=== PATIENT | female | born 1950 | race Hispanic/Latino ===

== ENCOUNTER → 2022-08-17 | Outpatient (CLI) | payer OTHER ==
[~2022-08-17] MED LIST: HYOS-28 PO; LANS1COM10 PO; OMEP20CA12 PO; ONDA4TAB4 PO; PROM25TA7 PO
== END | disposition home or self-care (01) ==
LOC: RAH 10:05
DX: K82.4 Cholesterolosis of gallbladder (principal); R10.13 Epigastric pain
CPT/HCPCS: 76700

== ENCOUNTER → 2023-05-04 | Outpatient (CLI) | payer OTHER | END | disposition home or self-care (01) | LOC: RAH 15:37 | PROVIDERS: ATTEND Family Medicine | DX: M19.072 Primary osteoarthritis, left ankle and foot (principal); M25.572 Pain in left ankle and joints of left foot | CPT/HCPCS: 73630 ==

== ENCOUNTER → 2023-05-05 | Outpatient (CLI) | payer OTHER | END | disposition home or self-care (01) | LOC: RAH 09:26 | PROVIDERS: ATTEND Family Medicine | DX: R22.42 Localized swelling, mass and lump, left lower limb (principal); M79.89 Other specified soft tissue disorders; M79.605 Pain in left leg | CPT/HCPCS: 93971 ==

== ENCOUNTER → 2023-06-12 | Outpatient (CLI) | payer OTHER | END | disposition home or self-care (01) | LOC: RAH 13:40 | PROVIDERS: ATTEND Family Medicine | DX: M19.071 Primary osteoarthritis, right ankle and foot (principal); M79.671 Pain in right foot | CPT/HCPCS: 73630 ==

== ENCOUNTER → 2024-02-26 | Outpatient (CLI) | payer OTHER | END | disposition home or self-care (01) | LOC: RAH 07:56 | PROVIDERS: ATTEND Family Medicine | DX: K82.4 Cholesterolosis of gallbladder (principal); R10.12 Left upper quadrant pain; N94.9 Unspecified condition associated with female genital organs and menstrual cycle | CPT/HCPCS: 76700; 76856 ==

== ENCOUNTER → 2024-12-06 | Outpatient (CLI) | payer OTHER ==
--- NOTE | 2024-12-06 16:58 | HMCIMG ---
US ABDOMINAL COMPLETE HISTORY: Upper abdominal pain COMPARISON: None TECHNIQUE: Multiple transverse and longitudinal ultrasound images of the abdomen were obtained. FINDINGS: Abdominal aorta and inferior vena cava are unremarkable. The visualized portion of the pancreas is within normal limits. Liver measured 12 cm. There are gallbladder polyps measuring 3 mm each. No gallstone is seen. Common duct measures 4 mm. No evidence of gallbladder wall thickening is seen. Both kidneys are seen. Right kidney measures 10.1 x 5.1 x 4.6 cm. There is right parapelvic renal cyst measuring 1 x 0.8 x 1.1 cm. Left kidney measures 10.5 x 4.9 x 3.8 cm. No hydronephrosis is seen of the both kidneys. The spleen is grossly unremarkable. IMPRESSION: 1. No gallstone or ductal dilatation is seen. Gallbladder polyps. 2. No hydronephrosis is seen. Right parapelvic renal cyst.
== END | disposition home or self-care (01) ==
LOC: RAH 10:29
PROVIDERS: ATTEND Internal Medicine Gastroenterology
DX: N28.1 Cyst of kidney, acquired (principal); K82.4 Cholesterolosis of gallbladder; R10.10 Upper abdominal pain, unspecified
CPT/HCPCS: 76700

== ENCOUNTER → 2025-04-28 | Outpatient (CLI) | payer OTHER ==
[~2025-04-28] MED LIST changes: +IOHEXOL-350 75 ML VIAL IV ONE
--- NOTE | 2025-04-28 13:04 | HMCIMG ---
EXAM: CT Abdomen and Pelvis With Intravenous Contrast CLINICAL HISTORY: 74 year old female with generalized abdomen pain. TECHNIQUE: Axial computed tomography images of the abdomen and pelvis with intravenous contrast. Dose reduction technique was not used as a standard dose of IV contrast was administered. CONTRAST: With Intravenous Contrast, standard dose. COMPARISON: CT Abdomen Pelvis, dated . FINDINGS: LUNG BASES: Atelectasis in the lung bases. LIVER: Unremarkable. GALLBLADDER AND BILE DUCTS: Unremarkable. No calcified stone. No ductal dilation. PANCREAS: Unremarkable. SPLEEN: Unremarkable. ADRENAL GLANDS: Unremarkable. KIDNEYS, URETERS, AND BLADDER: No hydronephrosis or nephrolithiasis. No ureteral or bladder calculi. Negative for obstructing ureteral stone. Symmetric excretion of contrast from both kidneys following contrast administration. STOMACH AND BOWEL: No obstruction. No wall thickening. No CT evidence of colitis or acute diverticulitis. APPENDIX: No CT evidence for appendicitis. PERITONEUM: No free fluid. No free air. LYMPH NODES: No lymphadenopathy. REPRODUCTIVE: Moderate-sized left ovarian follicular cyst measuring 4.6 cm in diameter. Follow up with pelvic ultrasound. VASCULATURE: No aortic aneurysm. ABDOMINAL WALL AND SOFT TISSUES: Unremarkable. BONES: No fracture or suspicious osseous abnormality. Note: The report is negative for enhancing mass lesion following contrast administration. The study is overall similar compared to the prior exam. IMPRESSION: 1. No acute findings. 2. Moderate-sized left ovarian follicular cyst measuring 4.6 cm in diameter. Follow up with pelvic ultrasound. /[place]
== END | disposition home or self-care (01) ==
LOC: RAH 09:20
PROVIDERS: ATTEND Internal Medicine Gastroenterology
DX: N83.02 Follicular cyst of left ovary (principal); R10.84 Generalized abdominal pain; J98.11 Atelectasis
CPT/HCPCS: 74178; Q9967